=== PATIENT | female | born 1980 | race Caucasian/White ===

== ENCOUNTER 2024-08-14 08:40 | Emergency (ER) | payer SELFPAY ==
[2024-08-14 08:42] VITALS: BP 143/90; PULSE 99; RESP 18; TEMP 36.4; O2SAT 97
--- NOTE | 2024-08-14 09:00 | ECG_ITS ---
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 Measurements Intervals [place] Rate: 90 P: 58 ND: 153 QRS: 72 QRSD: 71 T: 61 QT: 357 QTc: 438 Interpretive Statements SINUS RHYTHM SEPTAL MYOCARDIAL INFARCTION , OF INDETERMINATE AGE [40+ ms Q WAVE IN V1/V2] No previous ECG available for comparison Electronically Signed On 08-15-2024 20:54:23 CDT by Kika Cooper M.D. [email or web address] Limitedcleveland clinic marymount hospitalbuuteeq/store/NU/[id number] f
[2024-08-14 09:03] VITALS: BP 143/90; PULSE 90; RESP 16; O2SAT 97
[2024-08-14 09:10] LABS: Basophils % 0.4 %; Eosinophils % 0.3 %; Hematocrit 34.1 % (36-47); Lymphocytes # 1.1 10^3/uL (0.8-4.8); Lymphocytes % 11.5 %; Mean Corpuscular Hemoglobin 29.9 pg (27-33); Mean Corpuscular Volume 87.9 fl (85-98); Mean Platelet Volume 9.5 fL (7.4-10.4); Monocytes # 0.4 10^3/uL (0.2-0.9); Monocytes % 4.8 %; Neutrophils # 7.57 10^3/uL (1.8-7.7); Neutrophils % 82.5 %; Nucleated Red Blood Cells % 0 %; Platelet Count 241 10^3/cmm (157-399); Red Blood Count 3.88 10^6/uL (3.85-5.65); Red Cell Distribution Width 18.5 % (12.1-15.1); White Blood Count 9.19 10^3/uL (3.29-11.43)
--- NOTE | 2024-08-14 09:17 | CT_ITS ---
WS: [id number] CT HEAD NONCONTRAST HISTORY: seizures//fall TECHNIQUE: Contiguous axial imaging performed through the brain. Bone and soft tissue windows. Sagitt al and coronal reformats reviewed. All CT scans at [facility] use at least one of these dose optimization techniques: automated exposure control; mA and/or kV adjustment per patient size (includ es targeted exams where dose is matched to clinical indication); or iterative reconstruction. DLP: 1008.58 mGy.cm COMPARISON: None available. No acute intracranial hemorrhage, midline shift or mass effect. No atrophy or prior infarcts or herniation. Ventricles: Normal size with no hydrocephalus. No inferior displacement of cerebellar tonsils. Paranasal sinuses: As visualized are clear. Mastoid air cells: Well pneumatized. Calvarium and scalp: Skull is intact with no soft tissue edema or swelling. CT/CT head wo con* [id number] IMPRESSION: Negative head CT.
--- NOTE | 2024-08-14 09:25 | PC.PHAR ---
called [facility] to verify no meds at 9:25am
[2024-08-14 09:26] LABS: Lactic Sepsis W/Reflex 3.6 mmol/L (0.5-2.2)
[2024-08-14 09:27] LABS: Alanine Aminotransferase 8 U/L (0-33); Albumin Level 3.8 g/dL (3.5-5.2); Alcohol Level 126 mg/dL (0-10); Alkaline Phosphatase 88 U/L (35-105); Anion Gap 18.7 (5-19); Aspartate Amino Transferase 18 U/L (0-32); Blood Urea Nitrogen 11 mg/dL (6-20); Calcium 7.6 mg/dL (8.5-10.5); Carbon Dioxide 20 mmol/L (22-29); Chloride 103 mmol/L (98-107); Creatine Phosphokinase 125 U/L (26-192); Globulin 2.4 g/dL (1.3-4.6); Glomerular Filtration Rate 134.7 mL/min (90-130); Glucose 93 mg/dL (65-115); Osmolality Calculated 285 mOsm/kg (285-295); Potassium 3.7 mmol/L (3.5-5.1); Sodium 138 mmol/L (136-145); Total Bilirubin 0.5 mg/dL (0.15-1.2); Total Protein 6.2 g/dL (6.6-8.7)
[2024-08-14 09:31] LABS: Ammonia 27 umol/L (11-51)
--- NOTE | 2024-08-14 10:14 | ED_ITS ---
HPI - Alcohol 2 General: Chief Complaint: Alcohol Stated Complaint: etoh/seizure Time Seen by Provider: 08/14/24 08:44 History of Present Illness: 44-year-old female presents emergency ro om via EMS was found on the side of the road she cannot really remember why she got there she states she has been having seizures. She also states that she has had seizures for many years secondary to her previous closed head injury. She is not on any seizure medication she stopped because of logistical reasons due to cost. Patient does admit to drinking alcohol regular although denies drinking anything in the last 2 days. She was at [facility] last night was evaluated and discharged she did not thing and then fell on the side of the road was found and brought here. Associated symptoms: Deny abdominal pain Related Data Home Medications Medication Instructions Recorded Confirmed No Known Home Medications 08/14/24 08/14/24 Allergies Allergy/AdvReac Type Severity Reaction Status Date / Time No Known Allergies Allergy Verified 08/14/24 10:19 Review of Systems 2 Const: Denies: fever(s) or chills Card: Denies: chest pain Resp: Denies: dyspnea GI: Denies: abdominal pain : Denies: dysuria, urinary frequency or urinary urgency Musc: Denies: neck pain or back pain Skin/Breast: Denies: rash Physical Exam 2 Const: GENERAL APPEARANCE: cooperative ORIENTATION/CONSCIOUSNESS: Yes awake, Yes oriented to person, Yes oriented to place and Yes oriented to time HENMT: COMMON NORMALS: normocephalic, atraumatic and hearing grossly normal bilaterally HEAD & SCALP: normocephalic and atraumatic Resp: COMMON NORMALS: normal respiratory effort, No retractions, No use of accessory muscles and clear to auscultation bilaterally AUSCULTATION: clear to auscultation bilaterally Cardio: COMMON NORMALS: regular rate, regular rhythm and No murmurs present (Cardio) RATE: regular rate RHYTHM: regular rhythm GI: COMMON NORMALS: Soft to palpation and No hepatosplenomegaly present A USCULTATION: Yes normoactive bowel sounds PALPATION: Yes Soft to palpation, No Tenderness to palpation present (GI), No Guarding due to palpation present (GI) and Yes No hepatosplenomegaly present Extremity: COMMON NORMALS: normal to inspection, capillary refill normal, no clubbing, cyanosis or edema, no calf tenderness and no pedal edema Neuro: SENSORIUM/ORIENTATION: Yes oriented to person, Yes oriented to place and Yes oriented to time Skin: COMMON NORMALS: no rashes or lesions noted GENERAL SKIN EXAM: no rashes or lesions noted Course 2 Vital Signs: Vital signs: Vital Signs Temperature 97.6 F 08/14/24 08:42 Pulse Rate 82 08/14/24 12:11 Respiratory Rate 16 08/14/24 12:11 Blood Pressure 123/68 08/14/24 12:11 Pulse Oximetry 97 08/14/24 12:11 Oxygen Delivery Me thod Room Air 08/14/24 10:58 MDM - Alcohol Medical Decision Making Records obtained from [facility] [address] were reviewed. Blood alcohol there when she first rises to 393 they monitored her for a time rechecked it was down to 243 beats down to 136 now. She does have a little bit of tremor she reported having multiple seizures on arrival there with her blood alcohol was in the upper 300 range. She essentially passed out on the side of the road. She cannot really describe her seizures to me. She does not know the type of seizure she has had in the past. Lactic acid is slightly elevated I suspect that is from her alcohol use. Her anion gap is normal. [facility] records reviewed. She had told the doctor there she has seizures every couple of weeks she tells me she has not had them for years she described grand mal seizures to them she said she does not know what, seizures she has here. She does have underlying predilection for seizures that is worsened by her use of alcohol. At this point she has elevated lactic acidosis I think is due to her alcohol use. Her white count is normal she has no signs of infection I think she can be discharged home encouraged not to use alcohol. Her CPK was normal and do not think she has had significant grand mal seizures today. Her blood alcohol earlier today was 393 now its down to 126. Discharge patient home recommend abstaining from alcohol refer to neurology Medical Records I reviewed the patient's medical records. Lab Data I reviewed the patient's lab results. 08/14/24 08:59 08/14/24 08:[address] 08/14/24 09:17 IMPRESSION: Negative head CT. Laboratory Results WBC 9.19 10^3/uL (3.29-11.43) 08/14/24 08:59 RBC 3.88 10^6/uL (3.85-5.65) 08/14/24 08:59 Hgb 11.60 g/dL (11.27-16.99) 08/14/24 08:59 Hct 34.1 % (36-47) L 08/14/24 08:59 MCV 87.9 fl (85-98) 08/14/24 08:59 MCH 29.9 pg (27-33) 08/14/24 08:59 MCHC 34.0 g/dL (30-55) 08/14/24 08:59 RDW 18.5 % (12.1-15.1) H 08/14/24 08:59 Plt Count 241 10^3/cmm (157-399) 08/14/24 08:59 MPV 9.5 fL (7.4-10.4) 08/14/24 08:59 Neut % (Auto) 82.5 % 08/14/24 08:59 Lymph % (Auto) 11.5 % 08/14/24 08:59 Richardson % (Auto) 4.8 % 08/14/24 08:59 Eos % (Auto) 0.3 % 08/14/24 08:59 Baso % (Auto) 0.4 % 08/14/24 08:59 Neut # (Auto) 7.57 10^3/uL (1.8-7.7) 08/14/24 08:59 Lymph # (Auto) 1.1 10^3/uL (0.8-4.8) 08/14/24 08:59 Richardson # (Auto) 0.4 10^3/uL (0.2-0.9) 08/14/24 08:59 Eos # (Auto) 0.0 10^3/uL (0.0-0.8) 08/14/24 08:59 Baso # (Auto) 0.0 10^3/uL (0.0-0.1) 08/14/24 08:59 Nucleated RBC % (auto) 0 % 08/14/24 08:59 Nucleated RBCs # 0.0 /100WBC 08/14/24 08:59 Sodium 138 mmol/L (136-145) 08/14/24 08:59 Potassium 3.7 mmol/L (3.5-5.1) 08/14/24 08:59 Chloride 103 mmol/L (98-107) 08/14/24 08:59 Carbon Dioxide 20 mmol/L (22-29) L 08/14/24 08:59 Anion Gap 18.7 (5-19) 08/14/24 08:59 BUN 11 mg/dL (6-20) 08/14/24 08:59 Creatinine 0.5 mg/dL (0.5-0.9) 08/14/24 08:59 GFR Calculation 134.7 mL/min (90-130) H 08/14/24 08:59 Glucose 93 mg/dL (65-115) 08/14/24 08:59 Calculated Osmolality 285 mOsm/kg (285-295) 08/14/24 08:59 Lactic Acid 3.6 mmol/L (0.5-2.2) H 08/14/24 08:59 Calcium 7.6 mg/dL (8.5-10.5) L 08/14/24 08:59 Total Bilirubin 0.5 mg/dL (0.15-1.2) 08/14/24 08:59 AST 18 U/L (0-32) 08/14/24 08:59 ALT 8 U/L (0-33) 08/14/24 08:59 Alkaline Phosphatase 88 U/L (35-105) 08/14/24 08:59 Ammonia 27 umol/L (11-51) 08/14/24 08:59 Creatine Kinase 125 U/L (26-192) 08/14/24 08:59 Total Protein 6.2 g/dL (6.6-8.7) L 08/14/24 08:59 Albumin 3.8 g/dL (3.5-5.2) 08/14/24 08:59 Globulin 2.4 g/dL (1.3-4.6) 08/14/24 08:59 Ethyl Alcohol 126 mg/dL (0-10) H 08/14/24 08:59 All radiology interpretation(s) finalized by discharge Discharge Plan Discharge Patient Disposition: Home Clinical Impression: Alcoholic intoxication, Hx of seizure disorder Condition: Stable Prescriptions: No Action No Known Home Medications Discharge Orders: Discharge ED (Routine); Ordered 08/14/24 Ordered By: Jeremy Payne Discharge Diet: Usual diet Discharge Activity: Increase activity as tolerated Patient Instructions: Opioid Safety, Pain Management Activity Restrictions/Additional Instructions: Thank you for choosing [facility] for your healthcare needs today. It is very important that you follow up as instructed or that you return to the Emergency Department should you have concerns or if your condition changes or worsens in any way. You are seen in the emergency room with report of seizures. We reviewed your old records from previous hospital as well as labs done today and the imaging done today CT of your head was negative. Suspect your seizures were due to alcohol use your blood alcohol at [facility] was over 390 it was down to 136 here. There are no signs of alcohol withdrawal at this time. Recommend you abstain from alcohol establish with a primary care physician. Drinking alcohol can precipitate seizures in people who have an underlying seizure disorder. Coding Level of Care Code ED Orientation & Mobility Specialist for Kade Baptiste
[2024-08-14] MEDS: sodium chloride 0.9% 1,000 ML 999 ML IV (10:17)
[2024-08-14 10:54] LABS: Reflex Lactate Order REFLEX LACTIC ORDERD
[2024-08-14 10:58] VITALS: BP 124/68; PULSE 78; RESP 16; O2SAT 97
--- NOTE | 2024-08-14 11:07 | PC.NURSE ---
Per Dr Payne verbal order- D/c patient after the first Liter of NS. Pt calling for her ride.
--- NOTE | 2024-08-14 11:21 | PC.NURSE ---
this nurse assumed pt care at 1105 from PAVEL Lopez. pt in stable condition at this time.
[2024-08-14 12:11] VITALS: BP 123/68; PULSE 82; RESP 16; O2SAT 97
--- NOTE | 2024-08-18 08:09 | DCPLANNER ---
Message sent to Neurology for follow up on Seizures
== END 2024-08-14 12:09 | disposition home or self-care (01) ==
PROVIDERS: Emergency Provider Family Medicine
DX: F10.120 Alcohol abuse with intoxication, uncomplicated (principal); Y90.6 Blood alcohol level of 120-199 mg/100 ml; G40.909 Epilepsy, unspecified, not intractable, without status epilepticus
CPT/HCPCS: 70450; 80053; 80307; 82140; 82550; 83605; 85025; 93005; 99284; J7030

== ENCOUNTER 2024-09-10 11:24 | Inpatient (IN) | payer MEDICAID, SELFPAY ==
[2024-09-10 11:26] VITALS: BP 152/81; PULSE 86; RESP 17; TEMP 36.9; O2SAT 99
--- NOTE | 2024-09-10 11:45 | ED.C_ITS ---
HPI - Psych 2 General: Chief Complaint: Psychiatric Symptoms Stated Complaint: SI Time Seen by Provider: 09/10/24 11:33 History of Present Illness: Patient arrives via EMS with complaints of suicidal ideation. Patient denies homicidal ideation. Patient says she been seeing demons it has been keeping her up all night. Said she had a mental breakdown yesterday. She says that Leah keeps trying to steal her stuff however there is no Leah. She states that she is never done heroin she did did not ask for any pain medicine do not know why they keep saying that when no one is saying this patient keeps says her people right outside her room and she is hearing their voices and she is speaking to them however there is nobody outside her room. Related Data Home Medications Medication Instructions Recorded Confirmed No Known Home Medications 08/14/24 08/14/24 Allergies Allergy/AdvReac Type Severity Reaction Status Date / Time No Known Allergies Allergy Verified 08/14/24 10:19 Review of Systems 2 General: Reports: 10 or more systems reviewed and unremarkable except in HPI and below Physical Exam 2 Const: COMMON NORMALS: no acute distress, average body habitus, patient oriented x3, no limitations, healthy appearing, alert and well nourished HENMT: COMMON NORMALS: normocephalic, atraumatic, hearing grossly normal bilaterally, external ears normal, Normal external nose present and moist oral mucous membranes HEAD & SCALP: normocephalic and atraumatic NOSE: Normal external nose present EXTERNAL EAR: Yes external ears normal Neck/C-Spine: COMMON NORMALS: no JVD Chest: COMMONS NORMALS: normal inspection of the chest and normal palpation of entire chest wall Resp: COMMON NORMALS: normal respiratory effort, No retractions, No use of accessory muscles and clear to auscultation bilaterally AUSCULTATION: clear to auscultation bilaterally Cardio: COMMON NORMALS: no JVD, regular rate, regular rhythm, S1 normal heart sound present, S2 normal heart sound present, No gallops present (Cardio), No clicks present (Cardio), No murmurs present (Cardio) and No rub (Cardio) R ATE: regular rate RHYTHM: regular rhythm HEART SOUNDS: S1 normal heart sound present and S2 normal heart sound present GI: COMMON NORMALS: Normal to inspection, nondistended, normoactive bowel sounds present, Soft to palpation, non-tender, No hepatosplenomegaly present and no masses PALPATION: Yes Soft to palpation and Yes No hepatosplenomegaly present Neuro: COMMON NORMALS: patient oriented x3 SENSORIUM/ORIENTATION: Yes alert Course 2 Vital Signs: Vital signs: Vital Signs Temperature 98.4 F 09/10/24 11:26 Pulse Rate 86 09/10/24 11:26 Respiratory Rate 17 09/10/24 11:26 Blood Pressure 152/81 09/10/24 11:26 Pulse Oximetry 99 09/10/24 11:26 Oxygen Delivery Me thod Room Air 09/10/24 11:26 MDM - Psych Medical Decision Making Patient was cleared medically, once cleared Dr. Lozada was consulted who agreed to place the patient in NPU Differential Diagnosis Likely acute psychosis Medical Records I reviewed the patient's medical records. Lab Data I reviewed the patient's lab results. 09/10/24 14:17 09/10/24 14:17 Laboratory Results WBC 9.03 10^3/uL (3.29-11.43) 09/10/24 14:17 RBC 3.97 10^6/uL (3.85-5.65) 09/10/24 14:17 Hgb 11.90 g/dL (11.27-16.99) 09/10/24 14:17 Hct 36.1 % (36-47) 09/10/24 14:17 MCV 90.9 fl (85-98) 09/10/24 14:17 MCH 30.0 pg (27-33) 09/10/24 14:17 MCHC 33.0 g/dL (30-55) 09/10/24 14:17 RDW 18.8 % (12.1-15.1) H 09/10/24 14:17 Plt Count 216 10^3/cmm (157-399) 09/10/24 14:17 MPV 10.3 fL (7.4-10.4) 09/10/24 14:17 Neut % (Auto) 77.7 % 09/10/24 14:17 Lymph % (Auto) 13.8 % 09/10/24 14:17 Barrow % (Auto) 6.8 % 09/10/24 14:17 Eos % (Auto) 0.8 % 09/10/24 14:17 Baso % (Auto) 0.3 % 09/10/24 14:17 Neut # (Auto) 7.02 10^3/uL (1.8-7.7) 09/10/24 14:17 Lymph # (Auto) 1.3 10^3/uL (0.8-4.8) 09/10/24 14:17 Barrow # (Auto) 0.6 10^3/uL (0.2-0.9) 09/10/24 14:17 Eos # (Auto) 0.1 10^3/uL (0.0-0.8) 09/10/24 14:17 Baso # (Auto) 0.0 10^3/uL (0.0-0.1) 09/10/24 14:17 Nucleated RBC % (auto) 0 % 09/10/24 14:17 Nucleated RBCs # 0.0 /100WBC 09/10/24 14:17 Sodium 133 mmol/L (136-145) L 09/10/24 14:17 Potassium 2.9 mmol/L (3.5-5.1) L 09/10/24 14:17 Chloride 90 mmol/L (98-107) L 09/10/24 14:17 Carbon Dioxide 24 mmol/L (22-29) 09/10/24 14:17 Anion Gap 21.9 (5-19) H 09/10/24 14:17 BUN 20 mg/dL (6-20) 09/10/24 14:17 Creatinine 0.8 mg/dL (0.5-0.9) 09/10/24 14:17 GFR Calculation 78.3 mL/min (90-130) L 09/10/24 14:17 Glucose 87 mg/dL (65-115) 09/10/24 14:17 Calculated Osmolality 278 mOsm/kg (285-295) L 09/10/24 14:17 Calcium 8.8 mg/dL (8.5-10.5) 09/10/24 14:17 Total Bilirubin 0.9 mg/dL (0.15-1.2) 09/10/24 14:17 AST 50 U/L (0-32) H 09/10/24 14:17 ALT 32 U/L (0-33) 09/10/24 14:17 Alkaline Phosphatase 116 U/L (35-105) H 09/10/24 14:17 Total Protein 7.1 g/dL (6.6-8.7) 09/10/24 14:17 Albumin 4.3 g/dL (3.5-5.2) 09/10/24 14:17 Globulin 2.8 g/dL (1.3-4.6) 09/10/24 14:17 HCG, Qual Negative (Negative) 09/10/24 11:38 Urine Color Yellow (Yellow) 09/10/24 11:38 Urine Appearance Cloudy (CLEAR) A 09/10/24 11:38 Urine pH 5.5 (5-7) 09/10/24 11:38 Ur Specific Brule 1.010 (1.005-1.030) 09/10/24 11:38 Urine Protein Negative (Negative) 09/10/24 11:38 Urine Glucose (UA) Negative (Normal) 09/10/24 11:38 Urine Ketones 3+ (Negative) H 09/10/24 11:38 Urine Blood Negative (Negative) 09/10/24 11:38 Urine Nitrate Negative (Negative) 09/10/24 11:38 Urine Bilirubin Negative (Negative) 09/10/24 11:38 Urine Urobilinogen 1.0 mg/dL (Negative) 09/10/24 11:38 Ur Leukocyte Esterase 3+ (Negative) A 09/10/24 11:38 Urine RBC 0-2 /hpf (0-2) 09/10/24 11:38 Urine WBC 21-50 /hpf (0-5) H 09/10/24 11:38 Ur Squamous Epith Cells 6-10 /hpf (0-5) 09/10/24 11:38 Amorphous Sediment Not Reportable 09/10/24 11:38 Urine Bacteria Trace /hpf (NONE) 09/10/24 11:38 Hyaline Casts 4.52 /lpf 09/10/24 11:38 Salicylates < 0.3 mg/dL (3-10) L 09/10/24 14:17 Urine Opiates Screen Negative ng/mL (Negative) 09/10/24 11:38 Acetaminophen < 5.0 ug/mL (10-30) L 09/10/24 14:17 Ur Barbiturates Screen Negative ng/mL (Negative) 09/10/24 11:38 Ur Phencyclidine Scrn Negative ng/mL (Negative) 09/10/24 11:38 Ur Amphetamines Screen Negative ng/mL (Negative) 09/10/24 11:38 U Benzodiazepines Scrn Negative ng/mL (Negative) 09/10/24 11:38 Urine Cocaine Screen Negative ng/mL (Negative) 09/10/24 11:38 U Marijuana (THC) Screen Negative ng/mL (Negative) 09/10/24 11:38 Ethyl Alcohol < 10 mg/dL (0-10) 09/10/24 14:17 No radiology studies performed this visit Discharge Plan Discharge Patient Disposition: Admitted As Inpatient Admit Provider: Oswaldo Lozada Clinical Impression: Acute psychosis, Acute hypokalemia, Urinary tract infection Condition: Stable Coding Level of Care Code ED B2B Sales Consultant for Kade Baptiste
[2024-09-10 12:23] LABS: Bilirubin Urine Negative (Negative); Blood Urine Negative (Negative); Glucose Urine UA Negative (Normal); Ketones Urine 3+ (Negative); Leukocyte Esterase Urine 3+ (Negative); Nitrate Urine Negative (Negative); Protein Urine Negative (Negative); Urine Appearance Cloudy (CLEAR); Urine Color Yellow (Yellow); pH Urine 5.5 (5-7)
[2024-09-10 12:25] LABS: Add Urine Microscopic? YES; Bacteria Urine Trace /hpf; Hyaline Casts Urine 4.52 /lpf; RBC Urine 0-2 /hpf (0-2); WBC Urine 21-50 /hpf (0-5)
[2024-09-10 12:26] LABS: HCG Qualitative Urine. Negative (Negative)
[2024-09-10 12:27] LABS: Add Urine Culture? Yes; Amphetamines Screen Urine Negative (Negative); Barbiturates Screen Urine Negative (Negative); Benzodiazepines Screen Urine Negative (Negative); Cocaine Screen Urine Negative (Negative); Opiate Screen Urine Negative (Negative); PCP Screen Urine Negative (Negative); THC Screen Urine Negative (Negative)
[2024-09-10] MEDS: LORazepam 2 mg/mL INJ 1 mL IM (13:20)
[2024-09-10 14:31] LABS: Basophils % 0.3 %; Eosinophils # 0.1 10^3/uL (0.0-0.8); Eosinophils % 0.8 %; Hematocrit 36.1 % (36-47); Lymphocytes # 1.3 10^3/uL (0.8-4.8); Lymphocytes % 13.8 %; Mean Corpuscular Volume 90.9 fl (85-98); Mean Platelet Volume 10.3 fL (7.4-10.4); Monocytes # 0.6 10^3/uL (0.2-0.9); Monocytes % 6.8 %; Neutrophils # 7.02 10^3/uL (1.8-7.7); Neutrophils % 77.7 %; Nucleated Red Blood Cells % 0 %; Platelet Count 216 10^3/cmm (157-399); Red Blood Count 3.97 10^6/uL (3.85-5.65); Red Cell Distribution Width 18.8 % (12.1-15.1); White Blood Count 9.03 10^3/uL (3.29-11.43)
[2024-09-10 14:55] LABS: Acetaminophen < 5.0 ug/mL (10-30); Alanine Aminotransferase 32 U/L (0-33); Albumin Level 4.3 g/dL (3.5-5.2); Alcohol Level < 10 mg/dL (0-10); Alkaline Phosphatase 116 U/L (35-105); Anion Gap 21.9 (5-19); Aspartate Amino Transferase 50 U/L (0-32); Blood Urea Nitrogen 20 mg/dL (6-20); Calcium 8.8 mg/dL (8.5-10.5); Carbon Dioxide 24 mmol/L (22-29); Chloride 90 mmol/L (98-107); Globulin 2.8 g/dL (1.3-4.6); Glomerular Filtration Rate 78.3 mL/min (90-130); Glucose 87 mg/dL (65-115); Osmolality Calculated 278 mOsm/kg (285-295); Salicylate < 0.3 mg/dL (3-10); Sodium 133 mmol/L (136-145); Total Bilirubin 0.9 mg/dL (0.15-1.2); Total Protein 7.1 g/dL (6.6-8.7)
[2024-09-10 14:56] LABS: Potassium 2.9 mmol/L (3.5-5.1)
[2024-09-10] MEDS: ciprofloxacin 500 mg Tablet PO (15:11)
[2024-09-10] MEDS: potassium chloride ER 20 mEq Tablet 40 MEQ PO (15:11)
[2024-09-10 15:19] VITALS: O2SAT 98
[2024-09-10 15:54] VITALS: BP 131/78; PULSE 69; RESP 16; TEMP 37.3; O2SAT 96
[2024-09-10 16:00] VITALS: BP 131/78; PULSE 69; RESP 16; TEMP 37.3; O2SAT 96
--- NOTE | 2024-09-10 17:28 | PC.NURSE ---
96 hr rights reviewed with patient @1310 with assistance of [facility] information technology security manager Ronald Valladares All education reviewed with patient. Patient verbalized understanding to 96 hr hold. Patient copy left @bedside with patient. No verbalized needs or concerns at this time
[2024-09-10] MEDS: trazodone 50 mg Tablet PO ×2 (19:46→22:14)
[2024-09-10] MEDS: hyDROXYzine 25 mg Capsule 50 MG PO (19:46)
[2024-09-10 20:09] VITALS: BP 145/93; PULSE 110; RESP 18; TEMP 37.2; O2SAT 97
[2024-09-10] MEDS: LORazepam 2 mg Tablet PO ×3 (20:20→23:15)
--- NOTE | 2024-09-10 20:26 | PC.NURSE ---
PT WAS OFFERED THIAMINE INJECTION AND AGREED TO TAKE MEDICATION. MEDICATION WAS TAKEN FROM [facility] AND ADMINISTERED TO PT. DURING THIS TIME SEPARATE NURSE DISCONTINUED MEDICATION FOR UNKNOWN REASON.. THIS NURSE REPLACED THE ORDER PER PHYSICIAN ORDER FOR LOADING DOSE FOR ALCOHOL WITHDRAWAL.
[2024-09-10] MEDS: OLANZapine 5 mg ODT PO (22:14)
[2024-09-10 23:09] VITALS: BP 138/90; PULSE 115; RESP 18; TEMP 37.1; O2SAT 99
[2024-09-10] MEDS: haloperidol 5 mg Tablet PO (23:51)
[2024-09-11] MEDS: haloperidol inj 5 mg/mL INJ 1 mL IM (00:43)
[2024-09-11] MEDS: LORazepam 2 mg/mL INJ 1 mL IM ×2 (00:43→01:40)
[2024-09-11] MEDS: diphenhydrAMINE 50 mg/mL SDV 1mL IM (00:43)
--- NOTE | 2024-09-11 00:54 | PC.NURSE ---
Addendum entered by Lucy Read RN 09/11/24 01:52: patient was given IM combination shot at 0043. patient continued to pace her room and the halls, attempted to open locked double doors that exit the unit. patient then was intrusive towards the other patients, walking into a female room and flipping the light switch and waking the sleeping patients before staff could intervene. after staff brought her out into the fuentes she then attempted to enter a male room but was stopped by staff and escorted back into her room. Dr Chaney was called back after the thirty minutes, and updated on patients activities and behaviors. one time dose of 2mg IM Ativan was given over the phone with instructions to call back in another 30 minutes to update the doctor. order was placed at 0130, this selling underwriter and staff went to administer the shot and found patient naked and laying in an empty bed in the double room connected to hers by the bathroom. staff administered the IM shot at 0140 and assisted the patient in getting dressed. patient wandered the fuentes and her room for a short while more. at 0155 the patient was rounded on and seen laying in bed with eyes closed, respirations even and no distress noted. it should be noted that the patient is a daily drinker. she has drank alcohol since she was 15 years old. patient stated to this selling underwriter that she drinks fireball shooters (1oz shot bottles) that come in packs of 10 and will drink 2-3 10packs per day. she also stated that she will go back some days for more and will grab 105's to which this selling underwriter explained they didn't know what that meant. the patient stated that these were 50 proof. patient states not having alcohol since Saturday night 09/08, 2 days prior to being brought to the ER. she told this selling underwriter that she had run out of money Saturday for more drinks and proceeded to steal the alcohol that she needed that day. Original Note: CIWA SCORING patient was given PRN vistaril and trazodone at 1944 by day nurse. patient was then scored at a 22 on CIWA at 1999, given protocol 2mg PO ativan at 2019. patient was reassessed at 2124 with CIWA score 23, gave 2 mg PO ativan at 2132 per protocol. patient was becoming more agitated and anxious with intermittent A/V hallucinations. patient was able to be reorientated temporarily at this time. patient began digging at the artemio because it keeps coming through and it won't stop . patient was then given second dose of PRN trazodone and first dose zyprexa zydis at 2214. patient was wandering between her room and the adjoining room that was empty of patients through the shared bathroom, speaking very loudly into the empty room while grasping at the air close to the floor, near the wall stating I can't get them. These cats just won't come out of there! The patient was not able to be reorientated to the fact that there was no one in the room besides her and nursing staff. patient was assessed again on CIWA, scoring 22 at 2303 and given 2 mg PO ativan at 2315. patient was getting louder in her room, very agitated, and stubbed her foot on the corner of the bed while ambulating in her room and attempting to get unseen cats that were in her room. patient was given PRN 5mg PO haldol at 2348, she was very agitated while trying to pull the baseboards away from the wall by wedging her nails behind them. at 0015 the patient scored 31 on reassessment from last PO ativan dose and called the dr. Chaney per protocol. patient hx was reviewed with the doctor, reasons for being admitted to the psych unit with 96 hour hold, and informed him of all medications administered and scores on CIWA. Dr chaney gave order to administer IM benadryl, haldol, and ativan as combination shot per protocol and to reassess at 30 minutes and to call him back.
[2024-09-11 03:52] VITALS: RESP 14
[2024-09-11 07:42] VITALS: BP 105/60; PULSE 94; RESP 18; TEMP 36.6; O2SAT 96
[2024-09-11] MEDS: multivitamin therapeutic Tablet 1 TAB PO (08:48)
[2024-09-11] MEDS: folic acid 1 mg Tablet PO (08:48)
[2024-09-11] MEDS: thiamine 100 mg Tablet PO (08:48)
[2024-09-11] MEDS: LORazepam 2 mg Tablet PO ×2 (08:52→21:58)
[2024-09-11 11:41] VITALS: BP 106/66; PULSE 75; RESP 16; TEMP 36.8; O2SAT 99
--- NOTE | 2024-09-11 13:00 | P.NPUHP_ITS ---
Providers/Chief Complaint 2 Admitting Physician: Oswaldo Lozada MD Chief Complaint: SI HPI NPU History of Present Illness Brianne Valadez is a 44 year old female who presented today with the following report: Chief Complaint: Psychiatric Symptoms Stated Complaint: SI Time Seen by Provider: 09/10/24 11:33 History of Present Illness: Patient arrives via EMS with complaints of suicidal ideation. Patient denies homicidal ideation. Patient says she been seeing demons it has been keeping her up all night. Said she had a mental breakdown yesterday. She says that Leah keeps trying to steal her stuff however there is no Leah. She states that she is never done heroin she did did not ask for any pain medicine do not know why they keep saying that when no one is saying this patient keeps says her people right outside her room and she is hearing their voices and she is speaking to them however there is nobody outside her room. She was admitted to the neuropsychiatric unit for definitive treatment of those issues. She is unknown to the neuropsychiatric unit or [facility] psychiatric services through inpatient or outpatient services. She was admitted with an alcohol level below detection but had been here as recently as August 14 with a BAL over 100. He is reportedly a daily alcohol user. Her last use had been the previous day. After admission she was put on CIWA protocol and the nursing staff attempted to help her with her withdrawal. She was given multiple 2 mg Ativan doses per staff report which was verified in the chart. After about 6 mg of Ativan she was still having [id number] and sometimes purposeless behavior which led to a call to this health science writer who was on overnight and allowed for Haldol 5 mg and Ativan 2 mg IM to be given. A request for follow-up to identify the effectiveness of the dosing was requested and again there was a call made with her in continued back condition. This is what the nurse documented last night: patient was given IM combination shot at 0043. patient continued to pace her room and the halls, attempted to open locked double doors that exit the unit. patient then was intrusive towards the other patients, walking into a female room and flipping the light switch and waking the sleeping patients before staff could intervene. after staff brought her out into the fuentes she then attempted to enter a male room but was stopped by staff and escorted back into her room. Dr Chaney was called back after the thirty minutes, and updated on patients activities and behaviors. one time dose of 2mg IM Ativan was given over the phone with instructions to call back in another 30 minutes to update the doctor. order was placed at 0130, this health science writer and staff went to administer the shot and found patient naked and laying in an empty bed in the double room connected to hers by the bathroom. staff administered the IM shot at 0140 and assisted the patient in getting dressed. patient wandered the fuentes and her room for a short while more. at 0155 the patient was rounded on and seen laying in bed with eyes closed, respirations even and no distress noted. She presented today still having some of the sequela from her significant Ativan dosing tired, lethargic and unable to really be awakened for a profitable interview. Meds NPU Home Medications Medication Instructions Recorded Confirmed Last Taken Type No Known Home Medications 08/14/24 09/10/24 Unknown History Allergies Allergy/AdvReac Type Severity Reaction Status Date / Time No Known Allergies Allergy Verified 08/14/24 10:19 Mental Status Exam 2 MSE Comments: This is a slender white female in hospital scrubs with limited grooming and eye contact. No abnormal movements except for significant psychomotor retardation. Uncooperative with exam in no acute distress. Speech was absent essentially and mood not described affect was subdued. Thought process was organized. Thought content: Patient did not answer questions due to being so subdued. So there were no answers to questions about lethality or perceptual disturbances. Attention and concentration were impaired and memory was not tested and none were formally tested. She is asleep and not arousable. Insight, judgment and impulse control not evaluated at this time. Vitals/I&O/Wt Last Vital Signs Temp 98.3 F 09/11/24 11:41 Pulse 75 09/11/24 11:41 Resp 16 09/11/24 11:41 BP 106/66 09/11/24 11:41 Pulse Ox 99 09/11/24 11:41 O2 Del Method Room Air 09/11/24 11:41 Weight last 48 hrs Weight 64.682 kg Data NPU 09/10/24 14:17 09/10/24 14:17 Micro: Microbiology 09/10/24 11:38 Urine Culture - Preliminary Urine,Clean Catch Microbiology 09/10/24 11:38 Urine,Clean Catch Urine Culture - Preliminary A&P Assessment and plan (1) Acute hypokalemia: (2) Urinary tract infection: Qualifiers: Hematuria presence: without hematuria Urinary tract infection type: a cute cystitis Qualified Code(s): N30.00 - Acute cystitis without hematuria (3) Acute psychosis: (4) Altered mental status: (5) Alcohol use disorder, severe, dependence: (6) Alcohol withdrawal: Plan This is a 44-year-old white female with a reported extensive history of alcohol use going back to her teenage years who presents with active alcohol withdrawal and altered mental status versus psychosis needing significant management when she presented to the unit for her withdrawal symptoms using the CIWA protocol. 1. Continue off medication and attempt to get more information about any medication history. 2. Encourage individual, group and milieu therapy. 3. Continue every 15 minute checks for safety. 4. Continue CIWA protocol. 5. Encourage sober living treatment after discharge at the highest level of care to which she is willing to commit. 6. Obtain collateral information. Involuntary Hold Information 2 96 Hour Hold: 96 Hour Involuntary Admission: Yes 96 Hour Hold Ending Date: 09/16/23 96 Hour Hold Ending Time: 12:45 Other Hold: Hold End Date: 09/16/24 Attestations NPU 2 Medical Necessity Statement*: Inpatient hospitalization is medically necessary and the clinically appropriate intervention at this time. We will monitor medications and make changes as indicated. She will be in the hospital for over 2 midnights. Likely length of stay 5 to 7 days. Coding Level of Care Code [facility] Acute hypokalemia E87.6 Urinary tract infection N30.00 Hematuria presence: without hematuria Urinary tract infection type: acute cystitis Acute psychosis F23 Altered mental status R41.82 Alcohol use disorder, severe, dependence F10.20 Alcohol withdrawal F10.939
--- NOTE | 2024-09-11 14:17 | PC.NURSE ---
Patient has been confused this afternoon, wandering into others' rooms. Patient continues to be easily redirected. This RN asked her what she was going into other rooms for and she replied, I just need to find Claudio's room. This RN told her that no one named Claudio was on the unit and walked her back to her room. Patient is now resting with respirations visualized and no distress noted.
--- NOTE | 2024-09-11 14:51 | PC.OT ---
OT evaluation attempted 2x with patient sleeping soundly; will attempt again at later time.
[2024-09-11 15:21] LABS: Basophils % 0.7 %; Eosinophils # 0.3 10^3/uL (0.0-0.8); Hematocrit 31.7 % (36-47); Lymphocytes # 1.5 10^3/uL (0.8-4.8); Lymphocytes % 27.8 %; Mean Corpuscular HGB Conc 32.8 g/dL (30-55); Mean Corpuscular Hemoglobin 29.8 pg (27-33); Mean Corpuscular Volume 90.8 fl (85-98); Mean Platelet Volume 10.1 fL (7.4-10.4); Monocytes # 0.5 10^3/uL (0.2-0.9); Monocytes % 9.7 %; Neutrophils # 3.07 10^3/uL (1.8-7.7); Neutrophils % 56.4 %; Nucleated Red Blood Cells % 0 %; Platelet Count 171 10^3/cmm (157-399); Red Blood Count 3.49 10^6/uL (3.85-5.65); Red Cell Distribution Width 18.6 % (12.1-15.1); White Blood Count 5.44 10^3/uL (3.29-11.43)
[2024-09-11 15:41] LABS: Alanine Aminotransferase 32 U/L (0-33); Albumin Level 3.6 g/dL (3.5-5.2); Alkaline Phosphatase 87 U/L (35-105); Anion Gap 16.1 (5-19); Aspartate Amino Transferase 75 U/L (0-32); Blood Urea Nitrogen 17 mg/dL (6-20); Calcium 8.1 mg/dL (8.5-10.5); Carbon Dioxide 25 mmol/L (22-29); Chloride 99 mmol/L (98-107); Creatinine Clr Calc Pharmacy 125.1881; Globulin 2.1 g/dL (1.3-4.6); Glomerular Filtration Rate 109.1 mL/min (90-130); Glucose 85 mg/dL (65-115); Osmolality Calculated 285 mOsm/kg (285-295); Potassium 3.1 mmol/L (3.5-5.1); Sodium 137 mmol/L (136-145); Total Bilirubin 0.6 mg/dL (0.15-1.2); Total Protein 5.7 g/dL (6.6-8.7)
[2024-09-11 16:00] VITALS: BP 121/84; PULSE 80; RESP 17; TEMP 36.8; O2SAT 98
[2024-09-11 19:42] VITALS: BP 126/83; PULSE 79; RESP 16; TEMP 36.6; O2SAT 99
[2024-09-11] MEDS: hyDROXYzine 25 mg Capsule 50 MG PO (21:50)
[2024-09-11] MEDS: trazodone 50 mg Tablet PO (21:50)
[2024-09-12] VITALS (7 sets, daily range): BP systolic 106–136; BP diastolic 66–90; PULSE 76–95; RESP 16–17; TEMP 36.6–36.9; O2SAT 95–99
[2024-09-12] MEDS: multivitamin therapeutic Tablet 1 TAB PO (08:44)
[2024-09-12] MEDS: folic acid 1 mg Tablet PO (08:44)
[2024-09-12] MEDS: thiamine 100 mg Tablet PO (08:44)
[2024-09-12] MEDS: LORazepam 2 mg Tablet PO ×3 (08:44→20:13)
--- NOTE | 2024-09-12 11:23 | P.NPUPN_ITS ---
Subjective NPU 2 Subjective: Patient presented today reporting that she is feeling all right. However she continues to be quite isolative and was again unwilling to engage with this typewriter aligner. Staff report of her being a little more engaging but continuing to be quite stoic which was noted on direct observation as well. She did report that she was feeling better than yesterday and we discussed that we would need to really talk and help her develop a plan for where we go next. She denied any side effects to any medication. Mental Status Exam 2 MSE Comments: This is a slender white female in hospital scrubs with limited grooming and eye contact. No abnormal movements except for significant psychomotor retardation. Uncooperative with exam in no moderate distress. Speech was absent essentially and mood not described affect was subdued. Thought process was linear versus organized. Thought content: Patient did not answer questions due to being resistant to talking to this typewriter aligner. So there were no answers to questions about lethality or perceptual disturbances. Attention and concentration were limited versus impaired and memory was not tested and none were formally tested. She she was alert and oriented to person and place.. Insight, judgment and impulse control appear impaired. Vitals/I&O/Wt Last Vital Signs Temp 98 F 09/12/24 07:23 Pulse 76 09/12/24 07:23 Resp 16 09/12/24 07:23 BP 115/74 09/12/24 07:23 Pulse Ox 99 09/12/24 07:23 O2 Del Method Room Air 09/12/24 07:23 Weight last 48 hrs Weight 64.682 kg Data NPU 09/11/24 15:01 09/11/24 15:01 Micro: Microbiology 09/10/24 11:38 Urine Culture - Final Urine,Clean Catch Microbiology 09/10/24 11:38 Urine,Clean Catch Urine Culture - Final A&P Assessment and plan (1) Acute hypokalemia: (2) Urinary tract infection: Qualifiers: Hematuria presence: without hematuria Urinary tract infection type: a cute cystitis Qualified Code(s): N30.00 - Acute cystitis without hematuria (3) Acute psychosis: (4) Altered mental status: (5) Alcohol use disorder, severe, dependence: (6) Alcohol withdrawal: Plan This is a 44-year-old white female with a reported extensive history of alcohol use going back to her teenage years who presents with active alcohol withdrawal and altered mental status versus psychosis needing significant management when she presented to the unit for her withdrawal symptoms using the CIWA protocol. 1. Continue off medication and attempt to get more information about any medication history. 2. Encourage individual, group and milieu therapy. 3. Continue every 15 minute checks for safety. 4. Continue CIWA protocol. 5. Encourage sober living treatment after discharge at the highest level of care to which she is willing to commit. 6. Obtain collateral information. Involuntary Hold Information 2 96 Hour Hold: 96 Hour Involuntary Admission: Yes 96 Hour Hold Ending Date: 09/16/23 96 Hour Hold Ending Time: 12:45 Other Hold: Hold End Date: 09/16/24 Attestations NPU 2 Medical Necessity Statement*: Inpatient hospitalization is medically necessary and the clinically appropriate intervention at this time. We will monitor medications and make changes as indicated. Likely length of stay 5 to 7 days. Coding Level of Care Code Acute Code for [facility] Diagnoses Acute hypokalemia E87.6 Urinary tract infection N30.00 Hematuria presence: without hematuria Urinary tract infection type: acute cystitis Acute psychosis F23 Altered mental status R41.82 Alcohol use disorder, severe, dependence F10.20 Alcohol withdrawal F10.939
[2024-09-12] MEDS: trazodone 50 mg Tablet PO (20:12)
[2024-09-12] MEDS: haloperidol 5 mg Tablet PO (21:29)
[2024-09-13] VITALS (7 sets, daily range): BP systolic 110–153; BP diastolic 70–96; PULSE 69–89; RESP 16–18; TEMP 36.6–37.2; O2SAT 95–100
[2024-09-13] MEDS: thiamine 100 mg Tablet PO (08:25)
[2024-09-13] MEDS: folic acid 1 mg Tablet PO (08:25)
[2024-09-13] MEDS: multivitamin therapeutic Tablet 1 TAB PO (08:25)
[2024-09-13] MEDS: LORazepam 2 mg Tablet PO ×2 (08:25→20:18)
--- NOTE | 2024-09-13 08:35 | PC.NURSE ---
The patient is laying in bed upon assessment after breakfast. The patient denies hi and visual halluncinations but endorses anxiety as well as auditory hallucinations. The patient said that the anxiety gets higher when her AH gets worse. She stated I can hear people outside and in the corner of my room and I feel like they are out to get me and discussing how they are going to get me. The patient was assured that she was safe here and that we check on her every 15 minutes to ensure her safety. The patient said she felt better hearing this and laid back in bed, RR even and unlabored.
--- NOTE | 2024-09-13 15:09 | P.NPUPN_ITS ---
Subjective NPU 2 Subjective: Patient presented today reporting that she was really struggling with anxiety. She reports that her anxiety goes back to her childhood and that there were times it was so bad but her parents would not acknowledge her great distress. We discussed the risks, benefits and alternatives of a trial of BuSpar 10 mg p.o. twice daily and she understood and agreed to proceed as is documented in this note. Mental Status Exam 2 MSE Comments: This is a slender white female in hospital scrubs with limited grooming and eye contact. No abnormal movements except for significant psychomotor retardation. More cooperative with exam in moderate distress. Speech was more productive and decreased rate and volume. And mood described as anxious affect was subdued, congruent and distressed. Thought process was linear versus organized. Thought content: Patient denied active suicidal or homicidal ideation, there were no delusions reported but she continued to appear guarded, she denied any auditory or visual hallucinations. Attention and concentration were limited versus impaired and memory was more reliable but none were formally tested. She she was alert and oriented to person and place. Insight, judgment and impulse control appear impaired. Vitals/I&O/Wt Last Vital Signs Temp 98 F 09/13/24 15:07 Pulse 85 09/13/24 15:07 Resp 16 09/13/24 15:07 BP 132/85 09/13/24 15:07 Pulse Ox 100 09/13/24 15:07 O2 Del Method Room Air 09/13/24 15:07 Weight last 48 hrs Weight 67.676 kg Data NPU 09/11/24 15:01 09/11/24 15:01 A&P Assessment and plan (1) Acute hypokalemia: (2) Urinary tract infection: Qualifiers: Hematuria presence: without hematuria Urinary tract infection type: a cute cystitis Qualified Code(s): N30.00 - Acute cystitis without hematuria (3) Acute psychosis: (4) Altered mental status: (5) Alcohol use disorder, severe, dependence: (6) Alcohol withdrawal: Plan This is a 44-year-old white female with a reported extensive history of alcohol use going back to her teenage years who presents with active alcohol withdrawal and altered mental status versus psychosis needing significant management when she presented to the unit for her withdrawal symptoms using the CIWA protocol. 1. Continue off medication and attempt to get more information about any medication history. Start BuSpar 10 mg p.o. twice daily. 2. Encourage individual, group and milieu therapy. 3. Continue every 15 minute checks for safety. 4. Continue CIWA protocol. 5. Encourage sober living treatment after discharge at the highest level of care to which she is willing to commit. 6. Obtain collateral information. Involuntary Hold Information 2 96 Hour Hold: 96 Hour Involuntary Admission: Yes 96 Hour Hold Ending Date: 09/16/23 96 Hour Hold Ending Time: 12:45 Other Hold: Hold End Date: 09/16/24 Attestations NPU 2 Medical Necessity Statement*: Inpatient hospitalization is medically necessary and the clinically appropriate intervention at this time. We will monitor medications and make changes as indicated. Likely length of stay 5 to 7 days. Coding Level of Care Code Acute Code for [facility] Diagnoses Acute hypokalemia E87.6 Urinary tract infection N30.00 Hematuria presence: without hematuria Urinary tract infection type: acute cystitis Acute psychosis F23 Altered mental status R41.82 Alcohol use disorder, severe, dependence F10.20 Alcohol withdrawal F10.939
[2024-09-13] MEDS: trazodone 50 mg Tablet PO (20:18)
[2024-09-14] VITALS (7 sets, daily range): BP systolic 126–157; BP diastolic 78–98; PULSE 70–97; RESP 16–18; TEMP 36.6–36.9; O2SAT 97–100
[2024-09-14] MEDS: nicotine 21 mg Patch 1 PATCH TRANSDERMA (08:47)
[2024-09-14] MEDS: acetaminophen 325 mg Tablet 650 MG PO (08:47)
[2024-09-14] MEDS: LORazepam 2 mg Tablet PO ×3 (08:47→20:36)
[2024-09-14] MEDS: multivitamin therapeutic Tablet 1 TAB PO (08:47)
[2024-09-14] MEDS: folic acid 1 mg Tablet PO (08:48)
[2024-09-14] MEDS: BuSPIRONE 10 mg Tablet PO ×2 (08:48→18:05)
[2024-09-14] MEDS: thiamine 100 mg Tablet PO (08:48)
--- NOTE | 2024-09-14 08:48 | PC.NURSE ---
Patient scored 17 on CIWA scale. Administered ativan 2mg PO per protocol. Will continue to closely monitor patient.
--- NOTE | 2024-09-14 10:51 | PC.NURSE ---
Morning assessment Patient anxious and tearful during morning assessment. Patient stated that her anxiety is bad . Patient said that she keeps seeing faces. Patient reports some headache, temulous. Patient says she is depressed. She is staying with a friend who has mental issues which is making things difficult topatient. Patient says that she is an alcoholic and would like to quit. Patient denies suicidal thoughts
--- NOTE | 2024-09-14 13:21 | PC.NURSE ---
Patient score of 11 on CIWA. Per protocol, this nurse administered 2mg PO ativan. Patient currently talking with director social service. Patient is tearful, tremulous, and reports tactile and visual hallucinations.
--- NOTE | 2024-09-14 14:47 | W.PM.NPUPNS ---
Subjective NPU Subjective: Patient presented today reporting that the BuSpar was helpful. We discussed increasing the dosing to 3 times daily. Otherwise she reports that she is feeling her withdrawal at this starting to bart a little. We discussed making sure she is working with the social work team to figure out what her sober living treatment moving forward should be. She denied any signs of medication. Mental Status Exam MSE Comments: This is a slender white female in hospital scrubs with limited grooming and eye contact. No abnormal movements except for significant psychomotor retardation. More cooperative with exam in moderate distress. Speech was more productive and decreased rate and volume. And mood described as anxious affect was subdued, congruent and distressed. Thought process was linear versus organized. Thought content: Patient denied active suicidal or homicidal ideation, there were no delusions reported but she continued to appear guarded, she denied any auditory or visual hallucinations. Attention and concentration were limited versus impaired and memory was more reliable but none were formally tested. She she was alert and oriented to person and place. Insight, judgment and impulse control appear impaired. Vitals/I&O/Wt Last Vital Signs Temp 98.2 F 09/14/24 13:50 Pulse 97 09/14/24 13:50 Resp 16 09/14/24 13:50 BP 145/90 09/14/24 13:50 Pulse Ox 100 09/14/24 13:50 O2 Del Method Room Air 09/14/24 13:50 Weight last 48 hrs Weight 67.676 kg Data NPU 09/11/24 15:01 09/11/24 15:01 A&P Assessment and plan (1) Acute hypokalemia: (2) Urinary tract infection: Qualifiers: Hematuria presence: without hematuria Urinary tract infection type: acute cystitis Qualified Code(s): N30.00 - Acute cystitis without hematuria (3) Acute psychosis: (4) Altered mental status: (5) Alcohol use disorder, severe, dependence: (6) Alcohol withdrawal: Plan This is a 44-year-old white female with a reported extensive history of alcohol use going back to her teenage years who presents with active alcohol withdrawal and altered mental status versus psychosis needing significant management when she presented to the unit for her withdrawal symptoms using the CIWA protocol. 1. Continue off medication and attempt to get more information about any medication history. Started BuSpar 10 mg p.o. twice daily and increased to 3 times daily. 2. Encourage individual, group and milieu therapy. 3. Continue every 15 minute checks for safety. 4. Continue CIWA protocol. 5. Encourage sober living treatment after discharge at the highest level of care to which she is willing to commit. 6. Obtain collateral information. Involuntary Hold Information 96 Hour Hold: 96 Hour Involuntary Admission: Yes 96 Hour Hold Ending Date: 09/16/23 96 Hour Hold Ending Time: 12:45 Other Hold: Hold End Date: 09/16/24 Attestations NPU Medical Necessity Statement*: Inpatient hospitalization is medically necessary and the clinically appropriate intervention at this time. We will monitor medications and make changes as indicated. Likely length of stay 5 to 7 days. Coding Level of Care Code Acute Code for [facility] Fwd Diagnoses Acute hypokalemia E87.6 Urinary tract infection N30.00 Hematuria presence: without hematuria Urinary tract infection type: acute cystitis Acute psychosis F23 Altered mental status R41.82 Alcohol use disorder, severe, dependence F10.20 Alcohol withdrawal F10.939
--- NOTE | 2024-09-14 18:29 | PC.NURSE ---
Patient removed nicotine patch at around 1800. Patch disposed of in proper manner.
[2024-09-14] MEDS: nicotine 2 mg Gum BUCCAL (20:35)
[2024-09-14] MEDS: trazodone 50 mg Tablet PO (20:35)
[2024-09-15 04:00] VITALS: BP 151/94; PULSE 72; RESP 18; TEMP 36.8; O2SAT 99
[2024-09-15 07:40] VITALS: BP 136/87; PULSE 76; RESP 16; TEMP 36.6; O2SAT 99
[2024-09-15] MEDS: multivitamin therapeutic Tablet 1 TAB PO (08:07)
[2024-09-15] MEDS: nicotine 21 mg Patch 1 PATCH TRANSDERMA (08:08)
[2024-09-15] MEDS: thiamine 100 mg Tablet PO (08:08)
[2024-09-15] MEDS: folic acid 1 mg Tablet PO (08:08)
[2024-09-15] MEDS: BuSPIRONE 10 mg Tablet PO ×2 (08:08→14:55)
[2024-09-15] MEDS: hyDROXYzine 25 mg Capsule 50 MG PO ×2 (08:49→21:35)
[2024-09-15 12:00] VITALS: BP 139/95; PULSE 65; RESP 16; TEMP 36.8; O2SAT 99
[2024-09-15] MEDS: LORazepam 2 mg Tablet PO (12:31)
[2024-09-15 16:00] VITALS: BP 150/93; PULSE 79; RESP 16; TEMP 37; O2SAT 100
--- NOTE | 2024-09-15 16:59 | P.NPUPN_ITS ---
Subjective NPU 2 Subjective: Patient presented today reporting that she is feeling more determined to create change from her sobriety standpoint. She endorses that the medication is helping. She reports that she is working with the social work team on options for sober living treatment. She reports being really nervous about being able to find someone to watch her cat while she is gone. She endorses identifying that her roommate is also an alcoholic and she is not sure if they will be good together. She denied any side effects to the medication. Mental Status Exam 2 MSE Comments: This is a slender white female in hospital scrubs with limited grooming and eye contact. No abnormal movements except for significant psychomotor retardation. More cooperative with exam in moderate distress. Speech was more productive and decreased rate and volume. And mood described as anxious affect was subdued, congruent and distressed. Thought process was linear versus organized. Thought content: Patient denied active suicidal or homicidal ideation, there were no delusions reported but she continued to appear guarded, she denied any auditory or visual hallucinations. Attention and concentration were improving and memory was more reliable but none were formally tested. She she was alert and oriented to person and place. Insight and judgment are improving and impulse control appear limited but improving. Vitals/I&O/Wt Last Vital Signs Temp 98.6 F 09/15/24 16:00 Pulse 79 09/15/24 16:00 Resp 16 09/15/24 16:00 BP 150/93 09/15/24 16:00 Pulse Ox 100 09/15/24 16:00 O2 Del Method Room Air 09/15/24 16:00 Data NPU 09/11/24 15:01 09/11/24 15:01 A&P Assessment and plan (1) Acute hypokalemia: (2) Urinary tract infection: Qualifiers: Hematuria presence: without hematuria Urinary tract infection type: a cute cystitis Qualified Code(s): N30.00 - Acute cystitis without hematuria (3) Acute psychosis: (4) Altered mental status: (5) Alcohol use disorder, severe, dependence: (6) Alcohol withdrawal: Plan This is a 44-year-old white female with a reported extensive history of alcohol use going back to her teenage years who presents with active alcohol withdrawal and altered mental status versus psychosis needing significant management when she presented to the unit for her withdrawal symptoms using the CIWA protocol. 1. Continue off medication and attempt to get more information about any medication history. Started BuSpar 10 mg p.o. twice daily and increased to 3 times daily. Increased dose to 15 mg p.o. 3 times daily 2. Encourage individual, group and milieu therapy. 3. Continue every 15 minute checks for safety. 4. Continue CIWA protocol. 5. Encourage sober living treatment after discharge at the highest level of care to which she is willing to commit. She identified program at [place] as a possible rehab as well as some other possibilities. 6. Obtain collateral information. Involuntary Hold Information 2 96 Hour Hold: 96 Hour Involuntary Admission: Yes 96 Hour Hold Ending Date: 09/16/23 96 Hour Hold Ending Time: 12:45 Other Hold: Hold End Date: 09/16/24 Attestations NPU 2 Medical Necessity Statement*: Inpatient hospitalization is medically necessary and the clinically appropriate intervention at this time. We will monitor medications and make changes as indicated. Likely length of stay 4-6 days. Coding Level [facility] Acute hypokalemia E87.6 Urinary tract infection N30.00 Hematuria presence: without hematuria Urinary tract infection type: acute cystitis Acute psychosis F23 Altered mental status R41.82 Alcohol use disorder, severe, dependence F10.20 Alcohol withdrawal F10.939
[2024-09-15 19:56] VITALS: BP 143/98; PULSE 69; RESP 18; TEMP 37; O2SAT 100
[2024-09-15] MEDS: BuSPIRONE 10 mg Tablet 15 MG PO (21:34)
[2024-09-15] MEDS: trazodone 50 mg Tablet PO (21:35)
[2024-09-15] MEDS: nicotine 4 mg lozenge MUCOUS MEM (21:37)
[2024-09-16] VITALS: BP 134/86; PULSE 79; RESP 16; O2SAT 98
[2024-09-16 04:00] VITALS: BP 150/80; PULSE 83; RESP 18; TEMP 36.8; O2SAT 99
[2024-09-16] MEDS: nicotine 4 mg lozenge MUCOUS MEM ×8 (06:03→21:54)
[2024-09-16 07:44] VITALS: BP 147/85; PULSE 72; RESP 16; TEMP 37.1; O2SAT 99
[2024-09-16] MEDS: BuSPIRONE 10 mg Tablet 15 MG PO ×3 (08:10→19:54)
[2024-09-16] MEDS: folic acid 1 mg Tablet PO (08:11)
[2024-09-16] MEDS: multivitamin therapeutic Tablet 1 TAB PO (08:11)
[2024-09-16] MEDS: thiamine 100 mg Tablet PO (08:11)
--- NOTE | 2024-09-16 11:41 | P.NPUPN_ITS ---
Subjective NPU 2 Subjective: Patient presented today reporting that she is doing all right. She reports that she is working with the social work team on developing a plan for discharge. She continues to report that they are working on her possibly getting to [facility] and the tentative plan is for Saturday. She denied any side effects to medication. Mental Status Exam 2 MSE Comments: This is a slender white female in hospital scrubs with limited grooming and eye contact. No abnormal movements except for resolving psychomotor retardation. More cooperative with exam in mild to moderate distress. Speech was more productive and decreased rate and volume. And mood described as still a little anxious, affect was less subdued, congruent but less distressed. Thought process was linear versus organized. Thought content: Patient denied active suicidal or homicidal ideation, there were no delusions reported but she continued to appear guarded, she denied any auditory or visual hallucinations. Attention and concentration were improving and memory was more reliable but none were formally tested. She she was alert and oriented to person and place. Insight and judgment are improving and impulse control appear limited but improving. Vitals/I&O/Wt Last Vital Signs Temp 98.8 F 09/16/24 07:44 Pulse 72 09/16/24 07:44 Resp 16 09/16/24 07:44 BP 147/85 09/16/24 07:44 Pulse Ox 99 09/16/24 07:44 O2 Del Method Room Air 09/16/24 07:44 Data NPU 09/11/24 15:01 09/11/24 15:01 A&P Assessment and plan (1) Acute hypokalemia: (2) Urinary tract infection: Qualifiers: Hematuria presence: without hematuria Urinary tract infection type: a cute cystitis Qualified Code(s): N30.00 - Acute cystitis without hematuria (3) Acute psychosis: (4) Altered mental status: (5) Alcohol use disorder, severe, dependence: (6) Alcohol withdrawal: Plan This is a 44-year-old white female with a reported extensive history of alcohol use going back to her teenage years who presents with active alcohol withdrawal and altered mental status versus psychosis needing significant management when she presented to the unit for her withdrawal symptoms using the CIWA protocol. 1. Continue off medication and attempt to get more information about any medication history. Started BuSpar 10 mg p.o. twice daily and increased to 3 times daily. Increased dose to 15 mg p.o. 3 times daily 2. Encourage individual, group and milieu therapy. 3. Continue every 15 minute checks for safety. 4. Continue CIWA protocol. 5. Encourage sober living treatment after discharge at the highest level of care to which she is willing to commit. She identified program at [facility] as a possible rehab as well as some other possibilities. 6. Obtain collateral information. Involuntary Hold Information 2 96 Hour Hold: 96 Hour Involuntary Admission: Yes 96 Hour Hold Ending Date: 09/16/23 96 Hour Hold Ending Time: 12:45 Other Hold: Hold End Date: 09/16/24 Attestations NPU 2 Medical Necessity Statement*: Inpatient hospitalization is medically necessary and the clinically appropriate intervention at this time. We will monitor medications and make changes as indicated. Likely length of stay 2-4 days. Coding Level of Care Code Acute Code for Chg Fwd Diagnoses Acute hypokalemia E87.6 Urinary tract infection N30.00 Hematuria presence: without hematuria Urinary tract infection type: acute cystitis Acute psychosis F23 Altered mental status R41.82 Alcohol use disorder, severe, dependence F10.20 Alcohol withdrawal F10.939
[2024-09-16 11:52] VITALS: BP 148/91; PULSE 77; RESP 16; TEMP 36.8; O2SAT 100
[2024-09-16 14:27] VITALS: BP 137/83; PULSE 85; RESP 16; TEMP 36.6; O2SAT 96
[2024-09-16 19:40] VITALS: BP 151/90; PULSE 66; RESP 18; TEMP 37.1; O2SAT 100
[2024-09-16] MEDS: trazodone 50 mg Tablet PO (19:54)
[2024-09-16] MEDS: hyDROXYzine 25 mg Capsule 50 MG PO (19:54)
[2024-09-17] VITALS: BP 154/89; PULSE 64; RESP 18; TEMP 37.2; O2SAT 100
[2024-09-17] MEDS: trazodone 50 mg Tablet PO ×2 (00:13→21:00)
[2024-09-17 04:00] VITALS: BP 123/81; PULSE 79; RESP 16; O2SAT 99
[2024-09-17 08:00] VITALS: BP 134/89; PULSE 88; RESP 18; TEMP 37.4; O2SAT 98
[2024-09-17] MEDS: nicotine 4 mg lozenge MUCOUS MEM ×7 (08:13→21:00)
[2024-09-17] MEDS: folic acid 1 mg Tablet PO (08:56)
[2024-09-17] MEDS: BuSPIRONE 10 mg Tablet 15 MG PO ×3 (08:56→20:59)
[2024-09-17] MEDS: multivitamin therapeutic Tablet 1 TAB PO (08:56)
[2024-09-17] MEDS: thiamine 100 mg Tablet PO (08:56)
[2024-09-17] MEDS: OLANZapine 5 mg ODT PO (13:20)
[2024-09-17 13:31] VITALS: BP 144/89; PULSE 89; RESP 18; TEMP 36.7; O2SAT 99
[2024-09-17 14:00] VITALS: RESP 18
--- NOTE | 2024-09-17 16:54 | P.NPUPN_ITS ---
Subjective NPU 2 Subjective: Patient presented today reporting that things are going okay. He reports of feeling optimistic about tomorrow and the possibility of things going well. She reports that she knows this is the right for her and feels dedicated and optimistic about achieving her recovery. She denied any side effects to the medication and feels ready for discharge tomorrow. Mental Status Exam 2 MSE Comments: This is a slender white female in hospital scrubs with limited grooming and eye contact. No abnormal movements except for resolving psychomotor retardation. More cooperative with exam in mild distress. Speech was more productive and more normal rate and volume. And mood described as anxious about the new program, affect was congruent. Thought process was linear and more organized. Thought content: Patient denied active suicidal or homicidal ideation, there were no delusions reported but she continued to appear guarded, she denied any auditory or visual hallucinations. Attention and concentration were improving and memory was more reliable but none were formally tested. She she was alert and oriented to person and place. Insight and judgment are improving and impulse control appear limited but improving. Vitals/I&O/Wt Last Vital Signs Temp 98.1 F 09/17/24 13:31 Pulse 89 09/17/24 13:31 Resp 18 09/17/24 14:00 BP 144/89 09/17/24 13:31 Pulse Ox 99 09/17/24 13:31 O2 Del Method Room Air 09/17/24 00:00 Data NPU 09/11/24 15:01 09/11/24 15:01 A&P Assessment and plan (1) Acute hypokalemia: (2) Urinary tract infection: Qualifiers: Hematuria presence: without hematuria Urinary tract infection type: a cute cystitis Qualified Code(s): N30.00 - Acute cystitis without hematuria (3) Acute psychosis: (4) Altered mental status: (5) Alcohol use disorder, severe, dependence: (6) Alcohol withdrawal: Plan This is a 44-year-old white female with a reported extensive history of alcohol use going back to her teenage years who presents with active alcohol withdrawal and altered mental status versus psychosis needing significant management when she presented to the unit for her withdrawal symptoms using the CIWA protocol. 1. Continue off medication and attempt to get more information about any medication history. Started BuSpar 10 mg p.o. twice daily and increased to 3 times daily. Increased dose to 15 mg p.o. 3 times daily 2. Encourage individual, group and milieu therapy. 3. Continue every 15 minute checks for safety. 4. Continue CIWA protocol. 5. Encourage sober living treatment after discharge at the highest level of care to which she is willing to commit. She identified program at [place] as a possible rehab as well as some other possibilities. Plan to go to [facility] in [place]. 6. Plan for discharge in the morning. Involuntary Hold Information 2 96 Hour Hold: 96 Hour Involuntary Admission: Yes 96 Hour Hold Ending Date: 09/16/23 96 Hour Hold Ending Time: 12:45 Other Hold: Hold End Date: 09/16/24 Attestations NPU 2 Medical Necessity Statement*: Inpatient hospitalization is medically necessary and the clinically appropriate intervention at this time. We will monitor medications and make changes as indicated. Likely length of stay 1-3 days. Coding Level of Care Code Acute Code for Chg Fwd Diagnoses Acute hypokalemia E87.6 Urinary tract infection N30.00 Hematuria presence: without hematuria Urinary tract infection type: acute cystitis Acute psychosis F23 Altered mental status R41.82 Alcohol use disorder, severe, dependence F10.20 Alcohol withdrawal F10.939
[2024-09-17 19:56] VITALS: BP 126/85; PULSE 71; RESP 18; TEMP 36.6; O2SAT 99
[2024-09-17] MEDS: hyDROXYzine 25 mg Capsule 50 MG PO (21:00)
--- NOTE | 2024-09-18 05:49 | W.PM.NPUDCS ---
Diagnoses at Discharge Discharge Diagnosis (1) Acute hypokalemia: Status: Acute (2) Urinary tract infection: Status: Acute Qualifiers: Hematuria presence: without hematuria Urinary tract infection type: acute cystitis Qualified Code(s): N30.00 - Acute cystitis without hematuria (3) Acute psychosis: Status: Acute (4) Altered mental status: Status: Acute (5) Alcohol use disorder, severe, dependence: Status: Acute (6) Alcohol withdrawal: Status: Acute Reason for Visit Reason for Visit: SI Involuntary Hold Information 96 Hour Hold: 96 Hour Involuntary Admission: Yes 96 Hour Hold Ending Date: 09/16/23 96 Hour Hold Ending Time: 12:45 Other Hold: Hold End Date: 09/16/24 Discharge Data Studies Completed and Pending: Laboratory Results WBC 5.44 10^3/uL (3.2 9-11.43) 09/11/24 15:01 RBC 3.49 10^6/uL (3.8 5-5.65) L 09/11/24 15:01 Hgb 10.40 g/dL (11.27 -16.99) L 09/11/24 15:01 Hct 31.7 % (36-47) L 09/11/24 15:01 MCV 90.8 fl (85-98) 09/11/24 15:01 MCH 29.8 pg (27-33) 09/11/24 15:01 MCHC 32.8 g/dL (30-55) 09/11/24 15:01 RDW 18.6 % (12.1-15.1 ) H 09/11/24 15:01 Plt Count 171 10^3/cmm (157 -399) 09/11/24 15:01 MPV 10.1 fL (7.4-10.4 ) 09/11/24 15:01 Neut % (Auto) 56.4 % 09/11/24 15:01 Lymph % (Auto) 27.8 % 09/11/24 15:01 [place] % (Auto) 9.7 % 09/11/24 15:01 Eos % (Auto) 5.0 % 09/11/24 15:01 Baso % (Auto) 0.7 % 09/11/24 15:01 Neut # (Auto) 3.07 10^3/uL (1.8 -7.7) 09/11/24 15:01 Lymph # (Auto) 1.5 10^3/uL (0.8- 4.8) 09/11/24 15:01 [place] # (Auto) 0.5 10^3/uL (0.2- 0.9) 09/11/24 15:01 Eos # (Auto) 0.3 10^3/uL (0.0- 0.8) 09/11/24 15:01 Baso # (Auto) 0.0 10^3/uL (0.0- 0.1) 09/11/24 15:01 Nucleated RBC % (a uto) 0 % 09/11/24 15:01 Nucleated RBCs # 0.0 /100WBC 09/11/24 15:01 Sodium 137 mmol/L (136-1 45) 09/11/24 15:01 Potassium 3.1 mmol/L (3.5-5 .1) L 09/11/24 15:01 Chloride 99 mmol/L (98-107 ) 09/11/24 15:01 Carbon Dioxide 25 mmol/L (22-29) 09/11/24 15:01 Anion Gap 16.1 (5-19) 09/11/24 15:01 BUN 17 mg/dL (6-20) 09/11/24 15:01 Creatinine 0.6 mg/dL (0.5-0. 9) 09/11/24 15:01 GFR Calculation 109.1 mL/min (90- 130) 09/11/24 15:01 Glucose 85 mg/dL (65-115) 09/11/24 15:01 Calculated Osmolal ity 285 mOsm/kg (285- 295) 09/11/24 15:01 Calcium 8.1 mg/dL (8.5-10 .5) L 09/11/24 15:01 Total Bilirubin 0.6 mg/dL (0.15-1 .2) 09/11/24 15:01 AST 75 U/L (0-32) H 09/11/24 15:01 ALT 32 U/L (0-33) 09/11/24 15:01 Alkaline Phosphata se 87 U/L (35-105) 09/11/24 15:01 Total Protein 5.7 g/dL (6.6-8.7 ) L 09/11/24 15:01 Albumin 3.6 g/dL (3.5-5.2 ) 09/11/24 15:01 Globulin 2.1 g/dL (1.3-4.6 ) 09/11/24 15:01 HCG, Qual Negative (Negati ve) 09/10/24 11:38 Urine Color Yellow (Yellow) 09/10/24 11:38 Urine Appearance Cloudy (CLEAR) A 09/10/24 11:38 Urine pH 5.5 (5-7) 09/10/24 11:38 Ur Specific Gravit y 1.010 (1.005-1.0 30) 09/10/24 11:38 Urine Protein Negative (Negati ve) 09/10/24 11:38 Urine Glucose (UA) Negative (Normal ) 09/10/24 11:38 Urine Ketones 3+ (Negative) H 09/10/24 11:38 Urine Blood Negative (Negati ve) 09/10/24 11:38 Urine Nitrate Negative (Negati ve) 09/10/24 11:38 Urine Bilirubin Negative (Negati ve) 09/10/24 11:38 Urine Urobilinogen 1.0 mg/dL (Negati ve) 09/10/24 11:38 Ur Leukocyte Maddy ase 3+ (Negative) A 09/10/24 11:38 Urine RBC 0-2 /hpf (0-2) 09/10/24 11:38 Urine WBC 21-50 /hpf (0-5) H 09/10/24 11:38 Ur Squamous Epith Cells 6-10 /hpf (0-5) 09/10/24 11:38 Amorphous Sediment Not Reportable 09/10/24 11:38 Urine Bacteria Trace /hpf (NONE) 09/10/24 11:38 Hyaline Casts 4.52 /lpf 09/10/24 11:38 Salicylates < 0.3 mg/dL (3-10 ) L 09/10/24 14:17 Urine Opiates Scre en Negative ng/mL (N egative) 09/10/24 11:38 Acetaminophen < 5.0 ug/mL (10-3 0) L 09/10/24 14:17 Ur Barbiturates Sc reen Negative ng/mL (N egative) 09/10/24 11:38 Ur Phencyclidine S crn Negative ng/mL (N egative) 09/10/24 11:38 Ur Amphetamines Sc reen Negative ng/mL (N egative) 09/10/24 11:38 U Benzodiazepines Scrn Negative ng/mL (N egative) 09/10/24 11:38 Urine Cocaine Scre en Negative ng/mL (N egative) 09/10/24 11:38 U Marijuana (THC) Screen Negative ng/mL (N egative) 09/10/24 11:38 Ethyl Alcohol < 10 mg/dL (0-10) 09/10/24 14:17 Vitals: Last Vital Signs Temp 97.8 F 09/17/24 19:56 Pulse 71 09/17/24 19:56 Resp 18 09/17/24 19:56 BP 126/85 09/17/24 19:56 Pulse Ox 99 09/17/24 19:56 O2 Del Method Room Air 09/17/24 00:00 Discharge Plan Discharge Patient Disposition: Home Condition: Stable Prescriptions: New buspirone 15 mg tablet 15 mg PO TID 30 Days Qty: 90 1RF hydroxyzine pamoate 25 mg Capsule 50 mg PO Q6H PRN (Reason: Anxiety) 30 Days Qty: 120 1RF thiamine mononitrate (vit B1) [Vitamin B-1 (mononitrate)] 100 mg Tablet 100 mg PO DAILY 30 Days Qty: 30 1RF trazodone 50 mg Tablet 50 mg PO BEDTIME PRN (Reason: Sleep) 30 Days Qty: 30 1RF No Action No Known Home Medications Discharge Orders: Discharge Order (Routine); Ordered 09/18/24 Ordered By: Augusto Chaney Referrals: [facility] [Other] - 09/18/24 12:00 pm [facility] [Other] - 1-3 days (Walk in for services Saturday thru Saturday 8am to 4pm) Discharge Diet: Regular Discharge Activity: Resume usual activity Patient Instructions: Opioid Safety Discharge Attestations NPU Time Spent in Discharge Care*: less than 30 min Specific Discharge Activities: Specific discharge activities: educating patient, discussing with rn field case manager/social workers/dc planners, documenting/other paperwork and evaluating patient/reviewing data Coding Level of Care Code Acute Code for Chg Fwd Diagnoses Acute hypokalemia E87.6 Urinary tract infection N30.00 Hematuria presence: without hematuria Urinary tract infection type: acute cystitis Acute psychosis F23 Altered mental status R41.82 Alcohol use disorder, severe, dependence F10.20 Alcohol withdrawal F10.939
[2024-09-18 06:00] VITALS: BP 128/88; PULSE 95; RESP 16; TEMP 36.8; O2SAT 98
[2024-09-18] MEDS: nicotine 4 mg lozenge MUCOUS MEM (06:33)
[2024-09-18] MEDS: thiamine 100 mg Tablet PO (07:01)
[2024-09-18] MEDS: BuSPIRONE 10 mg Tablet 15 MG PO (07:01)
[2024-09-18 07:02] VITALS: BP 128/88; PULSE 95; RESP 16; TEMP 36.8; O2SAT 98
[2024-09-18] MEDS: multivitamin therapeutic Tablet 1 TAB PO (07:02)
[2024-09-18] MEDS: folic acid 1 mg Tablet PO (07:02)
--- NOTE | 2024-09-18 09:12 | PC.NURSE ---
called medication into [facility] spoke with Jason alarcon pt discharge medication.
== END 2024-09-18 07:14 | disposition other institution (70) | DRG 897 ==
LOC: ER 14:22 → NP 14:28
PROVIDERS: Psychiatry & Neurology Psychiatry; Admitting Provider Psychiatry & Neurology Psychiatry; Emergency Provider Emergency Medicine; Visit Provider Psychiatry & Neurology Psychiatry
DX: F10.239 Alcohol dependence with withdrawal, unspecified (principal); F23 Brief psychotic disorder; R45.851 Suicidal ideations; N30.00 Acute cystitis without hematuria; E87.6 Hypokalemia; Y90.0 Blood alcohol level of less than 20 mg/100 ml; F41.9 Anxiety disorder, unspecified; Z60.8 Other problems related to social environment
CPT/HCPCS: 36415; 80053; 80306; 80307; 81001; 81025; 85025; 87086; 96372; 97150; 97165; 99285; J1200; J1630; J2060; J3411